=== PATIENT | female | born 1960 | race Caucasian/White ===

== ENCOUNTER 2018-09-10 17:09 | Emergency (ER) | payer OTHER ==
[~2018-09-10] VITALS: Ht 154.9 cm; Wt 87.1 kg
[2018-09-10] MEDS ORDERED: COZAAR100 MG (17:29)
[2018-09-10] MEDS ORDERED: GLIMEPIRIDE4 MG (17:29)
[2018-09-10] MEDS ORDERED: PRILOSEC OTC20 MG (17:30)
[2018-09-10] MEDS ORDERED: BENTYL10 MG/1 ML (17:30)
[2018-09-11] MEDS ORDERED: KETO10TA2 PO (00:26)
[2018-09-11] MEDS ORDERED: LEVSIN/SL0.125 MG SL (00:26)
[2018-09-11] MEDS ORDERED: PEPCID AC20 MG PO (00:26)
== END 2018-09-11 00:38 | disposition home or self-care (01) ==
LOC: ER 17:09
DX: K80.80 Other cholelithiasis without obstruction (principal); R10.11 Right upper quadrant pain

== ENCOUNTER → 2018-11-12 | Day surgery (SDC) | payer OTHER ==
[~2018-11-12] VITALS: Ht 154.9 cm; Wt 81.6 kg
[~2018-11-12] MED LIST: AMARYL PO; BENTYL10 MG/1 ML; COZAAR100 MG; DULERA; GLIMEPIRIDE4 MG; KETO10TA2 PO; LEVSIN/SL0.125 MG SL; PEPCID AC20 MG PO; PRILOSEC OTC20 MG; PROVENTIL HFA6.7 GM IH
== END | disposition home or self-care (01) ==
LOC: O/R 05:00 → SURH 05:00 → CIR.AMB 07:00 → EDSTATUS 07:00 → O/R 11:40 → CIR.AMB 13:00
DX: K80.10 Calculus of gallbladder with chronic cholecystitis without obstruction (principal)

== ENCOUNTER 2018-11-24 00:42 | Emergency (ER) | payer OTHER ==
[~2018-11-24] VITALS: Ht 154.9 cm; Wt 81.2 kg
[2018-11-24] MEDS ORDERED: HYOSCYAMINE0.125 M2 (01:05)
[2018-11-24] MEDS ORDERED: KETO10TA2 (01:05)
== END 2018-11-24 16:20 | disposition home or self-care (01) ==
LOC: ER 00:42
DX: K29.60 Other gastritis without bleeding (principal); R10.13 Epigastric pain; R94.5 Abnormal results of liver function studies; F41.1 Generalized anxiety disorder; Z90.49 Acquired absence of other specified parts of digestive tract

== ENCOUNTER 2021-12-10 05:47 | Day surgery (SDC) | payer OTHER ==
[~2021-12-10 05:47] MED LIST changes: +ATORVAST PO; +HYOSCYAMINE0.125 M2; +KETO10TA2; +LEVOTHYROXINE25 MCG PO; +REGLAN PO
[2021-12-10] MEDS ORDERED: ULTRACET PO (08:47)
[2021-12-10] MEDS ORDERED: CEFADROXIL500 MG PO (08:47)
== END 2021-12-10 11:15 | disposition home or self-care (01) ==
LOC: CIR.AMB 05:47
PROVIDERS: ATTEND Orthopaedic Surgery Sports Medicine
DX: S83.241A Other tear of medial meniscus, current injury, right knee, initial encounter (principal); M17.11 Unilateral primary osteoarthritis, right knee; Z91.013 Allergy to seafood; J45.909 Unspecified asthma, uncomplicated; I10 Essential (primary) hypertension; E03.9 Hypothyroidism, unspecified; G47.33 Obstructive sleep apnea (adult) (pediatric); Z99.89 Dependence on other enabling machines and devices; K21.9 Gastro-esophageal reflux disease without esophagitis; K76.0 Fatty (change of) liver, not elsewhere classified; E66.01 Morbid (severe) obesity due to excess calories; Z20.822 Contact with and (suspected) exposure to COVID-19